=== PATIENT | male | born 1955 | race Caucasian/White ===

== ENCOUNTER → 2020-02-14 | Outpatient (CLI) | payer MEDICARE, OTHER ==
[2020-02-14 19:46] LABS: Bilirubin, Urine Neg (Neg); Blood, Urine Neg (Neg); Glucose Qualitative, Urine Neg (Neg); Ketones, Urine Neg (Neg); Leukocyte Esterase, Urine Neg (Neg); Nitrite, Urine Neg (Neg); Protein, Urine 3+ (Neg); Urobilinogen, Urine NORM (Normal); pH, Urine 6.5 (5.0-8.0)
[2020-02-14 19:58] LABS: Appearance, Urine Clear (Clear); Color, Urine Yellow (P-Yellow)
[2020-02-14 19:59] LABS: Bacteria Rare /hpf; Red Blood Cells, Urine Not Seen /hpf (0-2); Squamous Epithelial Cells Few /hpf (Few); White Blood Cells, Urine 0-2 /hpf (0-5)
== END | disposition home or self-care (01) ==
LOC: LAB 19:05 → LAB SHORT 19:05
PROVIDERS: Physician Assistant
DX: N39.0 Urinary tract infection, site not specified (principal)
CPT/HCPCS: 81001

== ENCOUNTER → 2020-03-19 | Outpatient (CLI) | payer MEDICARE, OTHER ==
[2020-03-19 15:58] LABS: BASOPHILS ABSOLUTE AUTO 0.05 K/mm3 (0.00-0.23); BASOPHILS PERCENT AUTO 1 % (0-2); EOSINOPHILS ABSOLUTE AUTO 0.33 K/mm3 (0.00-0.68); EOSINOPHILS PERCENT AUTO 6 % (0-6); Hematocrit 41.1 % (37.0-53.0); Hemoglobin 13.2 g/dL (13.5-17.5); IMMATURE GRAN ABSOLUTE AUTO 0.06 K/mm3 (0.00-0.10); IMMATURE GRAN PERCENT AUTO 1 % (0-1); LYMPHOCYTES ABSOLUTE AUTO 1.89 K/mm3 (0.84-5.20); LYMPHOCYTES PERCENT AUTO 36 % (21-46); MONOCYTES ABSOLUTE AUTO 0.44 K/mm3 (0.16-1.47); MONOCYTES PERCENT AUTO 8 % (4-13); Mean Corpuscular HGB 29.2 pg (26.0-34.0); Mean Corpuscular HGB Conc 32.1 g/dL (31.5-36.5); Mean Corpuscular Volume 91 fL (80-100); Mean Platelet Volume 12.7 fL (9.1-12.4); NEUTROPHILS ABSOLUTE AUTO 2.51 K/mm3 (1.96-9.15); NEUTROPHILS PERCENT AUTO 48 % (41-73); Platelet Count 134 K/mm3 (150-400); RDW Standard Deviation 53.7 fL (35.1-46.3); Red Blood Cell Count 4.52 M/mm3 (4.30-5.90); White Blood Cell Count 5.28 K/mm3 (4.00-11.30)
[2020-03-19 16:21] LABS: Valproic Acid 67.9 ug/mL (50.0-100.0)
[2020-03-20 07:08] LABS: HIV SCREEN 4TH GENERATION WRFX Non Reactive (Non Reactive)
== END | disposition home or self-care (01) ==
LOC: LAB 13:16 → LAB SHORT 13:16
PROVIDERS: Psychiatry & Neurology Psychiatry
DX: Z51.81 Encounter for therapeutic drug level monitoring (principal); I10 Essential (primary) hypertension; Z79.899 Other long term (current) drug therapy
CPT/HCPCS: 80164; 84443; 85025; 86592; 87389

== ENCOUNTER → 2020-03-30 | Outpatient (CLI) | payer MEDICARE, OTHER ==
[2020-04-01 13:14] LABS: Source, Urine Clean Catch
[2020-04-01 14:56] LABS: Bilirubin, Urine Neg (Neg); Blood, Urine Neg (Neg); Glucose Qualitative, Urine Neg (Neg); Ketones, Urine 2+ (Neg); Leukocyte Esterase, Urine Neg (Neg); Nitrite, Urine Neg (Neg); Protein, Urine 3+ (Neg); Specific Gravity, Urine 1.025 (1.003-1.022); Urobilinogen, Urine 1+ (Normal)
[2020-04-01 15:10] LABS: Appearance, Urine Clear (Clear); Color, Urine Amber (P-Yellow)
[2020-04-01 15:13] LABS: Bacteria Not Seen /hpf; Mucus Light (0-Heavy); Red Blood Cells, Urine Not Seen /hpf (0-2); Squamous Epithelial Cells Rare /hpf (Few); White Blood Cells, Urine Not Seen /hpf (0-5)
== END ==
LOC: LAB 20:00 → LAB SHORT 20:00
PROVIDERS: Physician Assistant
DX: N39.0 Urinary tract infection, site not specified (principal)
CPT/HCPCS: 81001

== ENCOUNTER → 2020-04-03 | Outpatient (CLI) | payer MEDICARE, OTHER ==
[2020-04-03 20:19] LABS: Alanine Aminotransfer (ALT/SGP 27 U/L (12-78); Albumin, Blood 2.7 g/dL (3.4-5.0); Albumin/Globulin Ratio 0.6 (0.8-1.8); Alk Phos 84 U/L (50-136); Anion Gap 4 mmol/L (6-16); Aspartate Aminotrans (AST/SGOT 44 U/L (12-37); Bilirubin, Direct 0.1 mg/dL (0.0-0.3); Bilirubin, Total 0.4 mg/dL (0.1-1.0); Blood Urea Nitrogen 32 mg/dL (8-24); Bun/Creatinine Ratio 35.8 (12.0-20.0); CO2, Blood 26 mmol/L (21-32); Calcium, Blood 8.8 mg/dL (8.5-10.1); Chloride, Blood 110 mmol/L (98-108); Creatinine, Blood 0.89 mg/dL (0.60-1.20); Globulin, Blood 4.8 g/dL (2.2-4.0); Glomerular Filtration Rate >60 (60-); Glucose, Blood 88 mg/dL (70-99); Potassium, Blood 4.3 mmol/L (3.5-5.5); Sodium, Blood 140 mmol/L (136-145); Total Protein, Blood 7.5 g/dL (6.4-8.2)
== END | disposition home or self-care (01) ==
LOC: LAB SHORT 12:29 → LAB 12:29
PROVIDERS: Physician Assistant
DX: R82.2 Biliuria (principal); R80.9 Proteinuria, unspecified; R82.4 Acetonuria; Z79.899 Other long term (current) drug therapy
CPT/HCPCS: 80053; 82248; 83735

== ENCOUNTER → 2020-09-02 | Outpatient (CLI) | payer MEDICARE, OTHER ==
[~2020-09-02] MED LIST: ACET325; AMLO5 PO; ASPI81CH PO; Cyproheptadine H4 MG PO; DICLOFENAC SOD100 GM; DIVA125 PO; FURO20 PO; LAVAP4L; LOPE2C PO; METR500; Naltrexone HCl50 MG PO; OLAN2.5 PO; OMEP20ER PO; ONDA4ODT MM; POTA10T PO; Prinivil10 MG PO; Prozac40 MG PO; TRAZ50 PO
[2020-09-02 19:25] LABS: Source, Urine Clean Catch
[2020-09-02 20:09] LABS: Appearance, Urine Clear (Clear); Blood, Urine 1+ (Neg); Color, Urine Amber (P-Yellow); Glucose Qualitative, Urine Neg (Neg); Ketones, Urine 2+ (Neg); Leukocyte Esterase, Urine 1+ (Neg); Nitrite, Urine Pos (Neg); Protein, Urine 3+ (Neg); Specific Gravity, Urine 1.025 (1.003-1.022); Urobilinogen, Urine 4+ (Normal)
[2020-09-02 20:27] LABS: Bilirubin, Urine 2+ (Neg)
[2020-09-02 20:28] LABS: Bacteria Rare /hpf; Hyaline Casts 0-2 /lpf (0-2); Mucus Light (0-Heavy); Red Blood Cells, Urine 0-2 /hpf (0-2); Squamous Epithelial Cells Rare /hpf (Few); White Blood Cells, Urine 0-2 /hpf (0-5)
[2020-09-02 20:53] LABS: Protein, Urine Random 183.9 mg/dL (0.0-11.9)
[2020-09-02 20:54] LABS: Protein, Urine Random 185.4 mg/dL (0.0-11.9)
== END | disposition home or self-care (01) ==
LOC: LAB SHORT 19:22 → LAB 19:22
PROVIDERS: Internal Medicine
DX: E87.0 Hyperosmolality and hypernatremia (principal); R80.9 Proteinuria, unspecified
CPT/HCPCS: 81001; 82570; 83935; 84156; 84300

== ENCOUNTER → 2020-09-06 | Outpatient (CLI) | payer MEDICARE, OTHER ==
[2020-09-06 14:59] LABS: Hematocrit 35.7 % (37.0-53.0); Hemoglobin 11.5 g/dL (13.5-17.5)
[2020-09-06 16:00] LABS: Albumin, Blood 2.2 g/dL (3.4-5.0); Anion Gap 8 mmol/L (6-16); Blood Urea Nitrogen 18 mg/dL (8-24); Bun/Creatinine Ratio 28.8 (12.0-20.0); CO2, Blood 26 mmol/L (21-32); Calcium, Blood 8.8 mg/dL (8.5-10.1); Chloride, Blood 110 mmol/L (98-108); Creatinine, Blood 0.63 mg/dL (0.60-1.20); Glomerular Filtration Rate >60 (60-); Glucose, Blood 111 mg/dL (70-99); Phosphorus, Blood 2.4 mg/dL (2.5-4.9); Potassium, Blood 3.7 mmol/L (3.5-5.5); Sodium, Blood 144 mmol/L (136-145)
== END | disposition home or self-care (01) ==
LOC: LAB SHORT 13:32 → LAB 13:32
PROVIDERS: Internal Medicine
DX: E87.0 Hyperosmolality and hypernatremia (principal)
CPT/HCPCS: 80069; 85014; 85018

== ENCOUNTER → 2021-01-29 | Outpatient (CLI) | payer MEDICARE, OTHER ==
[2021-01-29 12:50] LABS: Valproic Acid 72.9 ug/mL (50.0-100.0)
== END | disposition home or self-care (01) ==
LOC: LAB 08:55 → LAB SHORT 08:55
PROVIDERS: Psychiatry & Neurology Psychiatry
DX: Z51.81 Encounter for therapeutic drug level monitoring (principal); Z79.899 Other long term (current) drug therapy
CPT/HCPCS: 80164

== ENCOUNTER → 2021-09-24 | Outpatient (CLI) | payer MEDICARE, OTHER ==
[2021-09-24 12:13] LABS: BASOPHILS ABSOLUTE AUTO 0.06 K/mm3 (0.00-0.23); BASOPHILS PERCENT AUTO 1 % (0-2); EOSINOPHILS ABSOLUTE AUTO 0.23 K/mm3 (0.00-0.68); EOSINOPHILS PERCENT AUTO 2 % (0-6); Hematocrit 41.7 % (37.0-53.0); Hemoglobin 13.8 g/dL (13.5-17.5); IMMATURE GRAN ABSOLUTE AUTO 0.05 K/mm3 (0.00-0.10); IMMATURE GRAN PERCENT AUTO 0 % (0-1); LYMPHOCYTES ABSOLUTE AUTO 1.84 K/mm3 (0.84-5.20); LYMPHOCYTES PERCENT AUTO 16 % (21-46); MONOCYTES ABSOLUTE AUTO 0.76 K/mm3 (0.16-1.47); MONOCYTES PERCENT AUTO 7 % (4-13); Mean Corpuscular HGB 30.6 pg (26.0-34.0); Mean Corpuscular HGB Conc 33.1 g/dL (31.5-36.5); Mean Corpuscular Volume 93 fL (80-100); Mean Platelet Volume 11.4 fL (9.1-12.4); NEUTROPHILS ABSOLUTE AUTO 8.37 K/mm3 (1.96-9.15); NEUTROPHILS PERCENT AUTO 74 % (41-73); Platelet Count 208 K/mm3 (150-400); RDW Coefficient Variation 13.3 % (11.7-14.2); RDW Standard Deviation 45.2 fL (35.1-46.3); Red Blood Cell Count 4.51 M/mm3 (4.30-5.90); White Blood Cell Count 11.31 K/mm3 (4.00-11.30)
[2021-09-24 12:36] LABS: Alanine Aminotransfer (ALT/SGP 13 U/L (12-78); Albumin, Blood 2.4 g/dL (3.4-5.0); Albumin/Globulin Ratio 0.5 (0.8-1.8); Alk Phos 144 U/L (50-136); Anion Gap 6 mmol/L (6-16); Aspartate Aminotrans (AST/SGOT 14 U/L (12-37); Bilirubin, Total 0.4 mg/dL (0.1-1.0); Blood Urea Nitrogen 22 mg/dL (8-24); Bun/Creatinine Ratio 29.8 (12.0-20.0); CHOL/HDL RATIO 6.5; CO2, Blood 25 mmol/L (21-32); Chloride, Blood 108 mmol/L (98-108); Cholesterol 183 mg/dL (50-200); Creatinine, Blood 0.74 mg/dL (0.60-1.20); Globulin, Blood 4.5 g/dL (2.2-4.0); Glomerular Filtration Rate >60 (60-); Glucose, Blood 89 mg/dL (70-99); HDL Cholesterol 28 mg/dL (>39); LDL/HDL RATIO 4.6; Low Density Lipoprotein Chol 130 mg/dL (0-110); Potassium, Blood 4.1 mmol/L (3.5-5.5); Sodium, Blood 139 mmol/L (136-145); Total Protein, Blood 6.9 g/dL (6.4-8.2); Triglycerides 125 mg/dL (30-160); Very Low Density Lipoprot Chol 25 mg/dL (6-32)
== END | disposition home or self-care (01) ==
LOC: LAB SHORT 10:48 → LAB 10:48
PROVIDERS: Physician Assistant
DX: I69.354 Hemiplegia and hemiparesis following cerebral infarction affecting left non-dominant side (principal); I10 Essential (primary) hypertension
CPT/HCPCS: 80053; 80061; 85025

== ENCOUNTER 2022-01-09 02:09 | Day surgery (SDC) | payer MEDICARE, OTHER | END 2022-01-09 12:00 | disposition home or self-care (01) | LOC: WOUND 02:09 | DX: L89.892 Pressure ulcer of other site, stage 2 (principal); I73.9 Peripheral vascular disease, unspecified; I69.359 Hemiplegia and hemiparesis following cerebral infarction affecting unspecified side; I10 Essential (primary) hypertension; I25.2 Old myocardial infarction; M19.90 Unspecified osteoarthritis, unspecified site; Z87.891 Personal history of nicotine dependence; Z86.718 Personal history of other venous thrombosis and embolism | CPT/HCPCS: G0463 ==

== ENCOUNTER → 2022-01-14 | Outpatient (CLI) | payer MEDICARE, OTHER | END | disposition home or self-care (01) | LOC: LAB 11:11 → LAB SHORT 11:11 | DX: L97.509 Non-pressure chronic ulcer of other part of unspecified foot with unspecified severity (principal) | CPT/HCPCS: 87070; 87075; 87205 ==

== ENCOUNTER 2022-01-21 00:20 | Day surgery (SDC) | payer MEDICARE, OTHER | END 2022-01-21 22:50 | disposition home or self-care (01) | LOC: WOUND 00:20 | DX: L89.892 Pressure ulcer of other site, stage 2 (principal); I73.9 Peripheral vascular disease, unspecified | CPT/HCPCS: G0463 ==

== ENCOUNTER 2022-02-04 03:31 | Day surgery (SDC) | payer MEDICARE, OTHER ==
[2022-02-04] MEDS ORDERED: GABA300 (18:20)
[2022-02-04] MEDS ORDERED: PARO10 (18:23)
[2022-02-05] MEDS ORDERED: ALEVAZOL56.7 G1 TOP (00:32)
[2022-02-05] MEDS ORDERED: NYSTOP15 GM TOP (00:35)
[2022-02-05] MEDS ORDERED: VITAMIN D325 MC3 PO (00:37)
[2022-02-05] MEDS ORDERED: LORA.5 PO (00:40)
== END 2022-02-04 23:03 | disposition home or self-care (01) ==
LOC: WOUND 03:31
DX: L89.892 Pressure ulcer of other site, stage 2 (principal); I73.9 Peripheral vascular disease, unspecified; I69.359 Hemiplegia and hemiparesis following cerebral infarction affecting unspecified side
CPT/HCPCS: A9270; G0463

== ENCOUNTER 2022-02-04 17:27 | Inpatient (IN) | payer MEDICARE, OTHER ==
[~2022-02-04] VITALS: Ht 182.9 cm; Wt 87.5 kg
[~2022-02-04 17:27] MED LIST changes: -ACET325; +ACET325 PO
[2022-02-04 18:04] LABS: Source, Urine Straight Cath
[2022-02-04 18:10] LABS: BASOPHILS ABSOLUTE AUTO 0.07 K/mm3 (0.00-0.23); BASOPHILS PERCENT AUTO 0 % (0-2); EOSINOPHILS PERCENT AUTO 1 % (0-6); Hematocrit 47.8 % (37.0-53.0); Hemoglobin 15.7 g/dL (13.5-17.5); IMMATURE GRAN ABSOLUTE AUTO 0.07 K/mm3 (0.00-0.10); IMMATURE GRAN PERCENT AUTO 0 % (0-1); LYMPHOCYTES ABSOLUTE AUTO 1.87 K/mm3 (0.84-5.20); LYMPHOCYTES PERCENT AUTO 11 % (21-46); MONOCYTES ABSOLUTE AUTO 0.61 K/mm3 (0.16-1.47); MONOCYTES PERCENT AUTO 4 % (4-13); Mean Corpuscular HGB 29.2 pg (26.0-34.0); Mean Corpuscular HGB Conc 32.8 g/dL (31.5-36.5); Mean Corpuscular Volume 89 fL (80-100); Mean Platelet Volume 11.1 fL (9.1-12.4); NEUTROPHILS ABSOLUTE AUTO 14.44 K/mm3 (1.96-9.15); NEUTROPHILS PERCENT AUTO 84 % (41-73); Platelet Count 296 K/mm3 (150-400); RDW Coefficient Variation 14.1 % (11.7-14.2); RDW Standard Deviation 45.5 fL (35.1-46.3); Red Blood Cell Count 5.37 M/mm3 (4.30-5.90); White Blood Cell Count 17.26 K/mm3 (4.00-11.30)
[2022-02-04 18:18] LABS: Bilirubin, Urine Neg (Neg); Blood, Urine 2+ (Neg); Glucose Qualitative, Urine Neg (Neg); Ketones, Urine Neg (Neg); Leukocyte Esterase, Urine 1+ (Neg); Nitrite, Urine Neg (Neg); Protein, Urine 4+ (Neg); Specific Gravity, Urine 1.025 (1.003-1.022); Urobilinogen, Urine NORM (Normal)
[2022-02-04] MEDS ORDERED: GABA300 PO (18:20)
[2022-02-04] MEDS ORDERED: PARO10 PO (18:23)
[2022-02-04 18:45] LABS: Influenza A, PCR NEGATIVE (NEGATIVE); Influenza B, PCR NEGATIVE (NEGATIVE); Resp Syncytial Virus, PCR NEGATIVE (NEGATIVE); SARS-Cov-2 (COVID-19) PCR, MMC NEGATIVE (NEGATIVE)
[2022-02-04 18:46] LABS: Appearance, Urine Clear (Clear); Color, Urine Pale Yellow (P-Yellow)
[2022-02-04 18:48] LABS: Bacteria Few /hpf; Mucus Light (0-Heavy); Squamous Epithelial Cells Rare /hpf (Few)
[2022-02-04 19:42] LABS: Alanine Aminotransfer (ALT/SGP 17 U/L (12-78); Albumin, Blood 2.9 g/dL (3.4-5.0); Albumin/Globulin Ratio 0.6 (0.8-1.8); Alk Phos 158 U/L (50-136); Anion Gap 7 mmol/L (6-16); Aspartate Aminotrans (AST/SGOT 47 U/L (12-37); Bilirubin, Total 0.5 mg/dL (0.1-1.0); Blood Urea Nitrogen 25 mg/dL (8-24); Bun/Creatinine Ratio 34.3 (12.0-20.0); CO2, Blood 25 mmol/L (21-32); Calcium, Blood 8.8 mg/dL (8.5-10.1); Chloride, Blood 110 mmol/L (98-108); Creatinine, Blood 0.73 mg/dL (0.60-1.20); Globulin, Blood 4.8 g/dL (2.2-4.0); Glomerular Filtration Rate >60 (60-); Glucose, Blood 112 mg/dL (70-99); Potassium, Blood 5.3 mmol/L (3.5-5.5); Sodium, Blood 142 mmol/L (136-145); Total Protein, Blood 7.7 g/dL (6.4-8.2)
--- NOTE | 2022-02-04 23:55 | NUR ---
SHIFT SUMMARY: PATIENT IS RECIEVED FROM ER VIA STRETCHER. INC. OF URINE. SKIN IS INTACT, VSS. PATIENT IS UNABLE TO ANSWER QUESTION ABOUT MEDICATIONS. LIVES AT [facility] AND MEDICATIONS ARE GIVEN BY STAFF. NO REPORTS OF PAIN. PATIENT IS ORIENTED TO ROOM AND CALL SWARTZ. PATIENT IS A&O X3, KNOWS MONTH DOES NOT KNOW DATE. LEFT UPPER AND LOWER EXT. ARE CONTRACTED. PATIENT IS ABLE TO PUSH CALL SWARTZ AND IS ORIENTED TO ROOM AND CALL SWARTZ.
[2022-02-05] MEDS ORDERED: ALEVAZOL56.7 G1 TOP (00:32)
[2022-02-05] MEDS ORDERED: NYSTOP15 GM TOP (00:35)
[2022-02-05] MEDS ORDERED: VITAMIN D325 MC3 PO (00:37)
[2022-02-05] MEDS ORDERED: LORA.5 PO (00:40)
[2022-02-05 05:03] LABS: BASOPHILS ABSOLUTE AUTO 0.08 K/mm3 (0.00-0.23); BASOPHILS PERCENT AUTO 1 % (0-2); EOSINOPHILS ABSOLUTE AUTO 0.11 K/mm3 (0.00-0.68); EOSINOPHILS PERCENT AUTO 1 % (0-6); Hematocrit 40.9 % (37.0-53.0); Hemoglobin 13.3 g/dL (13.5-17.5); IMMATURE GRAN ABSOLUTE AUTO 0.11 K/mm3 (0.00-0.10); IMMATURE GRAN PERCENT AUTO 1 % (0-1); LYMPHOCYTES ABSOLUTE AUTO 1.82 K/mm3 (0.84-5.20); LYMPHOCYTES PERCENT AUTO 11 % (21-46); MONOCYTES ABSOLUTE AUTO 0.76 K/mm3 (0.16-1.47); MONOCYTES PERCENT AUTO 5 % (4-13); Mean Corpuscular HGB 29.8 pg (26.0-34.0); Mean Corpuscular HGB Conc 32.5 g/dL (31.5-36.5); Mean Corpuscular Volume 92 fL (80-100); Mean Platelet Volume 10.4 fL (9.1-12.4); NEUTROPHILS ABSOLUTE AUTO 14.07 K/mm3 (1.96-9.15); NEUTROPHILS PERCENT AUTO 83 % (41-73); Platelet Count 190 K/mm3 (150-400); RDW Coefficient Variation 14.3 % (11.7-14.2); RDW Standard Deviation 48.4 fL (35.1-46.3); Red Blood Cell Count 4.47 M/mm3 (4.30-5.90); White Blood Cell Count 16.95 K/mm3 (4.00-11.30)
[2022-02-05 05:32] LABS: Alanine Aminotransfer (ALT/SGP 13 U/L (12-78); Albumin, Blood 2.3 g/dL (3.4-5.0); Albumin/Globulin Ratio 0.6 (0.8-1.8); Alk Phos 117 U/L (50-136); Anion Gap 4 mmol/L (6-16); Aspartate Aminotrans (AST/SGOT 22 U/L (12-37); Bilirubin, Total 0.5 mg/dL (0.1-1.0); Blood Urea Nitrogen 27 mg/dL (8-24); Bun/Creatinine Ratio 31.1 (12.0-20.0); CO2, Blood 24 mmol/L (21-32); Calcium, Blood 7.7 mg/dL (8.5-10.1); Chloride, Blood 115 mmol/L (98-108); Creatinine, Blood 0.87 mg/dL (0.60-1.20); Globulin, Blood 3.8 g/dL (2.2-4.0); Glomerular Filtration Rate >60 (60-); Glucose, Blood 99 mg/dL (70-99); Sodium, Blood 143 mmol/L (136-145); Total Protein, Blood 6.1 g/dL (6.4-8.2)
--- NOTE | 2022-02-05 06:36 | NUR ---
SHIFT SUMMARY: PATIENT IS NPO FOR SWALLOW EVAL, POSSIBLE ASPIRATION. PATIENT TAKES PILLS CRUSHED IN APPLE SAUCE AT HOME FACILITY. TRAZADONE WAS GIVEN CRUSHED IN APPLE SAUCE AND SIP OF WATER WITHOUT DIFFICULTY. AM PRILOSEC IS NOT GIVEN, CAPSULE CAN'T BE OPENED. PATIENT WAS INC. OF A LARGE AMT. URINE ON ADMISSION, NO VOID SINCE.
--- NOTE | 2022-02-05 18:00 | NUR ---
SHIFT SUMMARY: NO ACUTE EVENTS. SWALLOW STUDY DONE, [facility] SOFT DIET. CONTRACTURES IN L ARM AND BLE, TURNING OFTEN. INCONTINENT OF B&B, ATTENDS IN PLACE. TOLERATING PO INTAKE. DENIED PAIN. TELEPHONE UPDATES GIVEN TO BRITTANY AT [facility] AND PT'S LEGAL GUARDIAN.
--- NOTE | 2022-02-06 05:08 | NUR ---
SHIFT SUMMARY: PATIENT HAS NO REPORTS OF PAIN, VSS, TRAZADONE WAS GIVEN AT HS WITH GOOD EFFECT. NO RESPIRATORY DISTRESS OBSERVED. PATIENT HAS AN OCCASIONAL MOIST COUGH. PATIENT IS INC. OF URINE, CONDUM CATH IS PLACED FOR URINARY DIVERSION.
[2022-02-06 06:08] LABS: BASOPHILS ABSOLUTE AUTO 0.05 K/mm3 (0.00-0.23); BASOPHILS PERCENT AUTO 1 % (0-2); EOSINOPHILS ABSOLUTE AUTO 0.32 K/mm3 (0.00-0.68); EOSINOPHILS PERCENT AUTO 3 % (0-6); Hematocrit 41.7 % (37.0-53.0); Hemoglobin 13.6 g/dL (13.5-17.5); IMMATURE GRAN ABSOLUTE AUTO 0.03 K/mm3 (0.00-0.10); IMMATURE GRAN PERCENT AUTO 0 % (0-1); LYMPHOCYTES ABSOLUTE AUTO 1.44 K/mm3 (0.84-5.20); LYMPHOCYTES PERCENT AUTO 15 % (21-46); MONOCYTES ABSOLUTE AUTO 0.66 K/mm3 (0.16-1.47); MONOCYTES PERCENT AUTO 7 % (4-13); Mean Corpuscular HGB 29.1 pg (26.0-34.0); Mean Corpuscular HGB Conc 32.6 g/dL (31.5-36.5); Mean Corpuscular Volume 89 fL (80-100); Mean Platelet Volume 10.1 fL (9.1-12.4); NEUTROPHILS PERCENT AUTO 74 % (41-73); Platelet Count 216 K/mm3 (150-400); RDW Coefficient Variation 14.3 % (11.7-14.2); RDW Standard Deviation 46.8 fL (35.1-46.3); Red Blood Cell Count 4.67 M/mm3 (4.30-5.90)
[2022-02-06 06:39] LABS: Anion Gap 6 mmol/L (6-16); Blood Urea Nitrogen 23 mg/dL (8-24); Bun/Creatinine Ratio 28.6 (12.0-20.0); CO2, Blood 26 mmol/L (21-32); Calcium, Blood 8.9 mg/dL (8.5-10.1); Chloride, Blood 111 mmol/L (98-108); Glomerular Filtration Rate >60 (60-); Glucose, Blood 97 mg/dL (70-99); Potassium, Blood 4.1 mmol/L (3.5-5.5); Sodium, Blood 143 mmol/L (136-145)
--- NOTE | 2022-02-06 17:25 | NUR ---
SHIFT SUMMARY PT ADMITTED FROM [facility] WITH SEVERE SEPSIS R/T PNM AND UTI. PT IS BED BOUND/WHEELCHAIR BOUND. LIFT TX TO CHAIR, PER REPORT. PT WITH HX OF CVA AND L SIDE DEFICITS. L ARM AND L LEG CONTRACTURES. PT STIFF WITH TURNING AND CHANGING. DOES REQUEST TO BE REPOSITIONED FREQUENTLY. ABLE TO TAKE PILLS WHOLE IN APPLESAUCE. FEEDS HIMSELF, MECH SOFT DIET, IF SET UP. CONDOM CATH IN PLACE TO PROTECT SKIN. NORMALLY INCONTINENT OF BOWEL AND BLADDER. SM SCABS ON 3DR AND 4TH TOES; WOUND CLINIC STAFF UP TO PROVIDE WOUND CARE AND PLACED ORDERS ON CHART. PER WOUND CLINIC STAFF, PT DOES COME IN FOR OUTPT TX WITH IODINE. PT TO D/C BACK TO [facility] ON WEDNESDAY, PER REPORT. NO STAFF AVAILABLE TO RECEIVE PT'S ON WEEKENDS. PT HAS BEEN PLEASANT AND CO-OP, WELL POLITE AND GRATEFUL FOR CARE GIVEN. CALL LT IN REACH AND ABLE TO MAKE NEEDS KNOWN.
--- NOTE | 2022-02-07 04:01 | NUR ---
SHIFT SUMMARY PT PLEASANT AND COOPERATIVE. SLEPT OFF AND ON THROUGHOUT THE NIGHT. BASELINE LEFT SIDED DEFECITS AND LEFT ARE AND R LEG CONTRACTURED. CONDOM CATH IN PLACE. CONDOM CATH DID COME DETACHED ONCE THIS EVENING, REQUIRING A WHOLE BED CHANGE BUT OTHERWISE WORKED WELL THROUGHOUT THE NIGHT. VITAL SIGNS STABLE. PT AWAITING DISCHARGE BACK HOME TO [facility], PROBABLE WEDNESDAY.
--- NOTE | 2022-02-07 18:30 | NUR ---
SHIFT SUMMARY- PT IS A/O, PLESANT AND COOPERATIVE. HE IS EATING AND DRINKING WELL. HE HAS BEEN INC OF STOOL THIS SHIFT. HIS CONDOM CATH WAS REMOVED. HIS BED IS IN THE LOW POSITION AND CALL LIGHT IS WITHIN REACH.
--- NOTE | 2022-02-08 04:34 | NUR ---
SHIFT SUMMARY PT APPEARED TO SLEEP WELL THIS EVENING. HX OF CVA WITH LEFT SIDED WEAKNESS. L ARM AND R LEG CONTRACTURED. PT HAD ONE SMALL SMEAR BM THIS EVENING. INCONTINENT OF BOWEL AND BLADDER. PT HAD AN UNEVENTFUL NIGHT. NO ACUTE CHANGES. AWAITING RETURN TO [facility]. VITAL SIGNS STABLE.
--- NOTE | 2022-02-08 18:27 | NUR ---
SHIFT SUMMARY- PT IS ALERT, PLESANT AND COOPERATIVE. HE IS EATING AND DRINKING THIS SHIFT. NO BM THIS SHIFT. HE IS INC OF URINE AND HAS AN ATTENDS IN PLACE. PLANNING DISCHARGE HOME TOMORROW. HIS BED IS IN THE LOW POSITION AND CALL LIGHT IS WITIN REACH.
--- NOTE | 2022-02-09 04:53 | NUR ---
SHIFT SUMMARY PT'S MENTATION CONTINUES TO IMPROVE. REMEMBERED THIS RN FROM THE SHIFT PRIOR. CALLS APPROPRIATELY. CONTINUES TO HAVE DEFECITS FROM PREVIOUS STROKE. LEFT SIDED WEAKNESS AND CONTRACTURES TO R LEG AND LEFT ARM. NO BOWEL MOVEMENTS THIS EVENING. PLAN FOR RETURN TO [facility] TODAY. VITAL SIGNS STABLE.
[2022-02-09] MEDS ORDERED: VISBIOME 112.51 EACH PO (12:03)
[2022-02-09] MEDS ORDERED: Vitamin D1000 UNI1 PO (12:04)
--- NOTE | 2022-02-09 15:31 | NUR ---
SHIFT SUMMARY NO ACUTE CHANGES TO PRESENT THIS SHIFT. PT TO RETURN TO [facility] SHORTLY. PT HAS RETURNED TO BASELINE. PLEASANT AND CO-OP, ABLE TO MAKE NEEDS KNOWN. HX OF CVA WITH L SIDE DEFICITS. R LEG AND L ARM CONTRACTURES. ABLE TO FEED SELF WITH SET UP. INCONTINENT OF BOWEL AND BLADDER. MEDS TAKEN WHOLE IN APPLESAUCE. DENIED FURTHER NEEDS. [facility] CALLED FOR UPDATE AND REPORT. PT WAITING FOR TRANSPORT AT THIS TIME. CALL LT IN REACH.
== END 2022-02-09 16:47 | disposition home or self-care (01) | DRG 871 ==
LOC: ER 17:27 → MEDS 22:54 → ENPENDDIS 02-09 10:44 → MEDS 02-09 16:47
PROVIDERS: Emergency Medicine; Family Medicine; Internal Medicine; ADMIT Internal Medicine
DX: A41.9 Sepsis, unspecified organism (principal); E43 Unspecified severe protein-calorie malnutrition; J18.9 Pneumonia, unspecified organism; F03.91 Unspecified dementia, unspecified severity, with behavioral disturbance; I69.354 Hemiplegia and hemiparesis following cerebral infarction affecting left non-dominant side; R65.20 Severe sepsis without septic shock; Z28.21 Immunization not carried out because of patient refusal; Z20.822 Contact with and (suspected) exposure to COVID-19; J43.9 Emphysema, unspecified; I10 Essential (primary) hypertension; G40.909 Epilepsy, unspecified, not intractable, without status epilepticus; K21.9 Gastro-esophageal reflux disease without esophagitis; G47.00 Insomnia, unspecified; Z68.24 Body mass index [BMI] 24.0-24.9, adult; I69.391 Dysphagia following cerebral infarction; Z86.711 Personal history of pulmonary embolism; Z87.891 Personal history of nicotine dependence; I25.2 Old myocardial infarction; Z79.82 Long term (current) use of aspirin; Z79.899 Other long term (current) drug therapy
CPT/HCPCS: 0241U; 36415; 51701; 71045; 80048; 80053; 81001; 83605; 83690; 85025; 87040; 87077; 87086; 92610; 93005; 93010; 94640; 96365; 96366; 96368; 96375; 99285-25; A9270; G0463; J0456; J0696; J1650; J1885; J2405; J2543; J3370; J7030; J7050

== ENCOUNTER 2022-02-25 00:29 | Day surgery (SDC) | payer MEDICARE, OTHER ==
[~2022-02-25 00:29] MED LIST changes: +ALEVAZOL56.7 G1 TOP; +GABA300; +LORA.5 PO; +NYSTOP15 GM TOP; +PARO10; +VISBIOME 112.51 EACH PO; +VITAMIN D325 MC3 PO; +Vitamin D1000 UNI1 PO
== END 2022-02-25 23:03 | disposition home or self-care (01) ==
LOC: WOUND 00:29
DX: L89.892 Pressure ulcer of other site, stage 2 (principal); I73.9 Peripheral vascular disease, unspecified; I69.359 Hemiplegia and hemiparesis following cerebral infarction affecting unspecified side
CPT/HCPCS: G0463

== ENCOUNTER 2022-03-18 02:51 | Day surgery (SDC) | payer MEDICARE, OTHER | END 2022-03-18 23:22 | disposition home or self-care (01) | LOC: WOUND 02:51 | DX: L89.892 Pressure ulcer of other site, stage 2 (principal); I73.9 Peripheral vascular disease, unspecified; I69.359 Hemiplegia and hemiparesis following cerebral infarction affecting unspecified side | CPT/HCPCS: G0463 ==

== ENCOUNTER → 2022-03-31 | Outpatient (CLI) | payer MEDICARE, OTHER ==
[2022-03-31 13:17] LABS: BASOPHILS ABSOLUTE AUTO 0.04 K/mm3 (0.00-0.23); BASOPHILS PERCENT AUTO 1 % (0-2); EOSINOPHILS PERCENT AUTO 4 % (0-6); Hematocrit 48.4 % (37.0-53.0); Hemoglobin 15.5 g/dL (13.5-17.5); IMMATURE GRAN ABSOLUTE AUTO 0.04 K/mm3 (0.00-0.10); IMMATURE GRAN PERCENT AUTO 1 % (0-1); LYMPHOCYTES ABSOLUTE AUTO 1.84 K/mm3 (0.84-5.20); LYMPHOCYTES PERCENT AUTO 25 % (21-46); MONOCYTES ABSOLUTE AUTO 0.56 K/mm3 (0.16-1.47); MONOCYTES PERCENT AUTO 8 % (4-13); Mean Corpuscular HGB 28.9 pg (26.0-34.0); Mean Corpuscular Volume 90 fL (80-100); Mean Platelet Volume 10.4 fL (9.1-12.4); NEUTROPHILS ABSOLUTE AUTO 4.72 K/mm3 (1.96-9.15); NEUTROPHILS PERCENT AUTO 63 % (41-73); Platelet Count 217 K/mm3 (150-400); RDW Coefficient Variation 15.9 % (11.7-14.2); RDW Standard Deviation 52.6 fL (35.1-46.3); Red Blood Cell Count 5.37 M/mm3 (4.30-5.90)
[2022-03-31 13:36] LABS: Alanine Aminotransfer (ALT/SGP 17 U/L (12-78); Albumin, Blood 2.9 g/dL (3.4-5.0); Albumin/Globulin Ratio 0.6 (0.8-1.8); Alk Phos 94 U/L (50-136); Anion Gap 6 mmol/L (6-16); Aspartate Aminotrans (AST/SGOT 15 U/L (12-37); Bilirubin, Total 0.3 mg/dL (0.1-1.0); Blood Urea Nitrogen 27 mg/dL (8-24); Bun/Creatinine Ratio 34.7 (12.0-20.0); CHOL/HDL RATIO 9.3; CO2, Blood 27 mmol/L (21-32); Calcium, Blood 8.8 mg/dL (8.5-10.1); Chloride, Blood 107 mmol/L (98-108); Cholesterol 195 mg/dL (50-200); Creatinine, Blood 0.78 mg/dL (0.60-1.20); Globulin, Blood 4.6 g/dL (2.2-4.0); Glomerular Filtration Rate >60 (60-); Glucose, Blood 94 mg/dL (70-99); HDL Cholesterol 21 mg/dL (>39); LDL/HDL RATIO 6.6; Low Density Lipoprotein Chol 138 mg/dL (0-110); Potassium, Blood 5.1 mmol/L (3.5-5.5); Sodium, Blood 140 mmol/L (136-145); Total Protein, Blood 7.5 g/dL (6.4-8.2); Triglycerides 180 mg/dL (30-160); Very Low Density Lipoprot Chol 36 mg/dL (6-32)
== END | disposition home or self-care (01) ==
LOC: LAB SHORT 11:54 → LAB 11:54
PROVIDERS: Physician Assistant
DX: Z13.220 Encounter for screening for lipoid disorders (principal); I10 Essential (primary) hypertension
CPT/HCPCS: 36415; 80053; 80061; 85025

== ENCOUNTER 2022-07-12 07:54 | Emergency (ER) | payer MEDICARE, OTHER ==
[~2022-07-12] VITALS: Ht 185.4 cm; Wt 81.7 kg
[~2022-07-12 07:54] MED LIST changes: -GABA300; +GABA300 PO
[2022-07-12 08:55] LABS: BASOPHILS ABSOLUTE AUTO 0.03 K/mm3 (0.00-0.23); BASOPHILS PERCENT AUTO 0 % (0-2); EOSINOPHILS ABSOLUTE AUTO 0.04 K/mm3 (0.00-0.68); EOSINOPHILS PERCENT AUTO 0 % (0-6); Hematocrit 45.9 % (37.0-53.0); Hemoglobin 15.6 g/dL (13.5-17.5); IMMATURE GRAN ABSOLUTE AUTO 0.04 K/mm3 (0.00-0.10); IMMATURE GRAN PERCENT AUTO 0 % (0-1); LYMPHOCYTES ABSOLUTE AUTO 1.16 K/mm3 (0.84-5.20); LYMPHOCYTES PERCENT AUTO 10 % (21-46); MONOCYTES ABSOLUTE AUTO 0.96 K/mm3 (0.16-1.47); MONOCYTES PERCENT AUTO 8 % (4-13); Mean Corpuscular HGB 31.3 pg (26.0-34.0); Mean Corpuscular Volume 92 fL (80-100); Mean Platelet Volume 9.9 fL (9.1-12.4); NEUTROPHILS ABSOLUTE AUTO 9.49 K/mm3 (1.96-9.15); NEUTROPHILS PERCENT AUTO 81 % (41-73); Platelet Count 246 K/mm3 (150-400); RDW Coefficient Variation 14.4 % (11.7-14.2); RDW Standard Deviation 48.8 fL (35.1-46.3); Red Blood Cell Count 4.99 M/mm3 (4.30-5.90); White Blood Cell Count 11.72 K/mm3 (4.00-11.30)
[2022-07-12 09:20] LABS: Albumin, Blood 3.2 g/dL (3.4-5.0); Albumin/Globulin Ratio 0.7 (0.8-1.8); Bilirubin, Total 0.5 mg/dL (0.1-1.0); Bun/Creatinine Ratio 35.2 (12.0-20.0); Calcium, Blood 8.9 mg/dL (8.5-10.1); Creatinine, Blood 0.65 mg/dL (0.60-1.20); Globulin, Blood 4.5 g/dL (2.2-4.0); Potassium, Blood 3.9 mmol/L (3.5-5.5); Total Protein, Blood 7.7 g/dL (6.4-8.2)
[2022-07-13] MEDS ORDERED: LOSA25 PO (03:34)
[2022-07-13] MEDS ORDERED: Naltrexone HCl50 MG PO (03:36)
[2022-07-13] MEDS ORDERED: ELEMENTAL ZINC30 MG PO (03:38)
[2022-07-13] MEDS ORDERED: LOPE2C PO (03:40)
[2022-07-13] MEDS ORDERED: ANASPAZ0.125 MG PO (03:40)
[2022-07-13] MEDS ORDERED: BACLOFEN5 M1 PO (03:41)
[2022-07-13] MEDS ORDERED: DULCOLAX400 MG/5 M PO (03:41)
== END 2022-07-12 13:52 | disposition home or self-care (01) ==
LOC: ER 07:54
PROVIDERS: Student in an Organized Health Care Education/Training Program
DX: R07.9 Chest pain, unspecified (principal); J43.9 Emphysema, unspecified; I10 Essential (primary) hypertension; Z86.711 Personal history of pulmonary embolism; Z79.899 Other long term (current) drug therapy; Z79.82 Long term (current) use of aspirin; Z87.891 Personal history of nicotine dependence
CPT/HCPCS: 71045; 80053; 83690; 84484; 85025; 93005; 93010; A9270

== ENCOUNTER 2022-07-12 20:55 | Inpatient (IN) | payer MEDICARE, OTHER ==
[~2022-07-12] VITALS: Ht 185.4 cm; Wt 90.7 kg
[~2022-07-12 20:55] MED LIST changes: -PARO10; +PARO10 PO
[2022-07-12 21:49] LABS: BASOPHILS ABSOLUTE AUTO 0.03 K/mm3 (0.00-0.23); BASOPHILS PERCENT AUTO 0 % (0-2); EOSINOPHILS ABSOLUTE AUTO 0.02 K/mm3 (0.00-0.68); EOSINOPHILS PERCENT AUTO 0 % (0-6); Hematocrit 48.5 % (37.0-53.0); Hemoglobin 16.6 g/dL (13.5-17.5); IMMATURE GRAN ABSOLUTE AUTO 0.13 K/mm3 (0.00-0.10); IMMATURE GRAN PERCENT AUTO 1 % (0-1); LYMPHOCYTES ABSOLUTE AUTO 1.09 K/mm3 (0.84-5.20); LYMPHOCYTES PERCENT AUTO 6 % (21-46); MONOCYTES ABSOLUTE AUTO 2.22 K/mm3 (0.16-1.47); MONOCYTES PERCENT AUTO 12 % (4-13); Mean Corpuscular HGB 31.7 pg (26.0-34.0); Mean Corpuscular HGB Conc 34.2 g/dL (31.5-36.5); Mean Corpuscular Volume 93 fL (80-100); Mean Platelet Volume 10.7 fL (9.1-12.4); NEUTROPHILS ABSOLUTE AUTO 15.33 K/mm3 (1.96-9.15); NEUTROPHILS PERCENT AUTO 81 % (41-73); Platelet Count 304 K/mm3 (150-400); RDW Coefficient Variation 14.6 % (11.7-14.2); RDW Standard Deviation 50.1 fL (35.1-46.3); Red Blood Cell Count 5.24 M/mm3 (4.30-5.90); White Blood Cell Count 18.82 K/mm3 (4.00-11.30)
[2022-07-12 22:52] LABS: Albumin, Blood 2.9 g/dL (3.4-5.0); Albumin/Globulin Ratio 0.6 (0.8-1.8); Bilirubin, Total 0.6 mg/dL (0.1-1.0); Bun/Creatinine Ratio 30.4 (12.0-20.0); Calcium, Blood 8.6 mg/dL (8.5-10.1); Creatinine, Blood 0.92 mg/dL (0.60-1.20); Globulin, Blood 4.5 g/dL (2.2-4.0); Potassium, Blood 4.6 mmol/L (3.5-5.5); Total Protein, Blood 7.4 g/dL (6.4-8.2)
[2022-07-13 02:48] LABS: Influenza A, PCR NEGATIVE (NEGATIVE); Influenza B, PCR NEGATIVE (NEGATIVE); Resp Syncytial Virus, PCR NEGATIVE (NEGATIVE); SARS-Cov-2 (COVID-19) PCR, MMC NEGATIVE (NEGATIVE)
[2022-07-13] MEDS ORDERED: LOSA25 PO (03:34)
[2022-07-13] MEDS ORDERED: Naltrexone HCl50 MG PO (03:36)
[2022-07-13] MEDS ORDERED: ELEMENTAL ZINC30 MG PO (03:38)
[2022-07-13] MEDS ORDERED: ANASPAZ0.125 MG PO (03:40)
[2022-07-13] MEDS ORDERED: LOPE2C PO (03:40)
[2022-07-13] MEDS ORDERED: DULCOLAX400 MG/5 M PO (03:41)
[2022-07-13] MEDS ORDERED: BACLOFEN5 M1 PO (03:41)
--- NOTE | 2022-07-13 03:48 | NUR ---
PT ARRIVED TO ROOM 229 FROM ER. PT ALERT, SLOW TO RESPOND. PT ORIENTED TO SELF; STATES DOES NOT KNOW BDAY, FOLLOWS SOME DIRECTIONS, AND ANSWERS SOME QUESTIONS. PT BP ELEVATED, HR TACHY 1'TEENS, PT DENIES CP/PRESSURE. PT IS C/O ABD PAIN, DENIES N/V AT THIS TIME. PT IS W/C BOUND AT BASELINE, RLE CROSSED OVER LLE, PT IS UNABLE TO MOVE LLE OR LUE. PT ORIENTED TO ROOM/CALL LIGHT, SOFT TOUCH CALL LIGHT PROVIDED.
[2022-07-13 05:28] LABS: BASOPHILS ABSOLUTE AUTO 0.03 K/mm3 (0.00-0.23); BASOPHILS PERCENT AUTO 0 % (0-2); EOSINOPHILS PERCENT AUTO 0 % (0-6); Hematocrit 46.8 % (37.0-53.0); Hemoglobin 15.7 g/dL (13.5-17.5); IMMATURE GRAN ABSOLUTE AUTO 0.17 K/mm3 (0.00-0.10); IMMATURE GRAN PERCENT AUTO 1 % (0-1); LYMPHOCYTES ABSOLUTE AUTO 1.47 K/mm3 (0.84-5.20); LYMPHOCYTES PERCENT AUTO 7 % (21-46); MONOCYTES ABSOLUTE AUTO 2.71 K/mm3 (0.16-1.47); MONOCYTES PERCENT AUTO 14 % (4-13); Mean Corpuscular HGB 31.5 pg (26.0-34.0); Mean Corpuscular HGB Conc 33.5 g/dL (31.5-36.5); Mean Corpuscular Volume 94 fL (80-100); Mean Platelet Volume 10.6 fL (9.1-12.4); NEUTROPHILS ABSOLUTE AUTO 15.51 K/mm3 (1.96-9.15); NEUTROPHILS PERCENT AUTO 78 % (41-73); Platelet Count 256 K/mm3 (150-400); RDW Coefficient Variation 14.9 % (11.7-14.2); RDW Standard Deviation 51.7 fL (35.1-46.3); Red Blood Cell Count 4.98 M/mm3 (4.30-5.90); White Blood Cell Count 19.89 K/mm3 (4.00-11.30)
[2022-07-13 05:52] LABS: Albumin, Blood 2.4 g/dL (3.4-5.0); Albumin/Globulin Ratio 0.6 (0.8-1.8); Bilirubin, Total 0.9 mg/dL (0.1-1.0); Calcium, Blood 8.3 mg/dL (8.5-10.1); Creatinine, Blood 0.9 mg/dL (0.60-1.20); Globulin, Blood 4.2 g/dL (2.2-4.0); Potassium, Blood 4.2 mmol/L (3.5-5.5); Total Protein, Blood 6.6 g/dL (6.4-8.2)
--- NOTE | 2022-07-13 06:18 | NUR ---
PT NEW ADMIT THIS SHIFT FOR LARA. PT T-MAX 100.1, HR TRENDING 90-1'TEENS THIS AM. PT DENIED CP/PRESSURE SINCE ARRIVING TO FLOOR. PT MED FOR ABD PAIN X1 W/REP RELIEF, NO C/O N/V. PT NPO, IVF CONT AND ABX CONT PER ORDERS. PT USING SOFT TOUCH CALL LIGHT FOR ASSISTANCE.
--- NOTE | 2022-07-13 08:36 | NUR ---
DR GILMORE IN TO SEE PT.
[2022-07-13 11:55] LABS: Source, Urine Straight Cath
--- NOTE | 2022-07-13 12:13 | NUR ---
PT TO PRE OP SENT SCHEDULED ABX TO PRE OP.
[2022-07-13 12:43] LABS: Appearance, Urine Hazy (Clear); Bilirubin, Urine Neg (Neg); Blood, Urine 3+ (Neg); Color, Urine Amber (P-Yellow); Glucose Qualitative, Urine Neg (Neg); Ketones, Urine 1+ (Neg); Leukocyte Esterase, Urine 1+ (Neg); Nitrite, Urine Neg (Neg); Protein, Urine 4+ (Neg); Urobilinogen, Urine NORM (Normal)
[2022-07-13 13:03] LABS: Amorphous Heavy (0-Heavy); Bacteria Few /hpf; Squamous Epithelial Cells Not Seen /hpf (Few)
[2022-07-13 13:04] LABS: Waxy Cast 0-2 /lpf (0)
--- NOTE | 2022-07-13 13:19 | NUR ---
07/13/22 1319 Darnell Montanez PT PRESENTS WITH CONTRACTURES. POSITIONED TO PT COMFORT PRIOR TO GOING UNDER GENERAL ANESTHESIA. LEFT ARM OVER CHEST, SECURED WITH TAPE. RIGHT LEG OVER LEFT LEG WITH PILLOW IN BETWEEN KNEES AND HEELS PADDED WITH GEL PAD.
[2022-07-13 16:37] LABS: PCO2 Arterial 35.9 mmHg (35-45); PO2 Arterial 71.4 mmHg (80-100); pH Blood Arterial 7.42 (7.35-7.45)
--- NOTE | 2022-07-13 17:13 | NUR ---
PT BACK FROM SURGERY SOUNDED VERY WET, GURGLING. 02 SATS 80S ON RA, PLACED ON 3L NC, 02 SATS IMPROVED TO LOW 90S. ATTEMPTED TO SUCTION, GOT SMALL AMOUNT THICK WHITE SECRETIONS. CALLED DR COPELAND, ORDERS OBTAINED. RT CAME PER ORDERS AND PERFORMED DEEP SUCTION, GOT MODERATE AMOUNT THICK SECRETIONS. ABG PERFORMED. XR IN TO SEE PT NOW. BP WAS 172/100, ADMINISTERED 5MG IV LOPRESSOR PER ORDERS. BP NOW 148/75. EASY TOUCH CALL LIGHT IN REACH.
--- NOTE | 2022-07-13 18:39 | NUR ---
SUMMARY PT POD 0 LAP LARA. LAP INCISIOINS W/WOUND GLUE CDI. PT HAD DIFFICULTY CLEARING SECRETIONS UPON ARRIVING TO FLOOR FROM PACU. DR COPELAND NOTIFIED AND ORDERS OBTAINED. RT PERFORMED DEEP SUCTION AND EXTRACTED MODERATE AMOUNT CLEAR SECRETIONS. 02 SATS IMPROVED. MEDICATED PT PER ORDERS W/LOPRESSOR FOR HIGH BP WICH HAS IMPROVED. PT RESTING W/EYES CLOSED. BREATHING E/U AT THIS TIME
--- NOTE | 2022-07-13 19:30 | NUR ---
recvd report from previous shift lashell Mcnair. pt sleeping in bed, bed in lowest position, bed rails up x 2, soft touch call light within reach.
--- NOTE | 2022-07-14 04:11 | NUR ---
SHIFT SUMMARY: VSS, NO ACUTE CHANGES. PT APPEARS TO BE SLEEPING WHEN NURSE ROUNDING. NURSING STAFF REPOSITIONED AND ASSESSED ATTENDS Q2. PT TOLERATED PO INTAKE, NO N/V. ROM TO CONTRACTURES L HAND AND RIGHT LEG. PT VOIDED IN ATTENDS THIS SHIFT. ABDOMINAL LAP SITES C/D/I.
[2022-07-14 05:12] LABS: Albumin, Blood 1.9 g/dL (3.4-5.0); Anion Gap 5 mmol/L (6-16); Blood Urea Nitrogen 34 mg/dL (8-24); CO2, Blood 26 mmol/L (21-32); Calcium, Blood 8.4 mg/dL (8.5-10.1); Chloride, Blood 114 mmol/L (98-108); Creatinine, Blood 1.36 mg/dL (0.60-1.20); Glomerular Filtration Rate 57 (60-); Glucose, Blood 122 mg/dL (70-99); Phosphorus, Blood 4.2 mg/dL (2.5-4.9); Potassium, Blood 4.1 mmol/L (3.5-5.5); Sodium, Blood 145 mmol/L (136-145)
[2022-07-14] MEDS ORDERED: Norco 5-325 Ta1 EACH PO (11:24)
--- NOTE | 2022-07-14 12:05 | NUR ---
PT DISCHARGING. REPORT GIVEN TO CARLOS AT [facility].
--- NOTE | 2022-07-14 15:12 | NUR ---
DISHCARGED REPORT CALLED EARLIER TO [facility]. IV DC'D, CATHETER INTACT. TELE REMOVED AND RETURNED. PT LEFT UNIT VIA GURNEY TRANSPORT W/POSSESSIONS AND DC PAPERWORK.
== END 2022-07-14 15:08 | disposition home or self-care (01) | DRG 854 ==
LOC: ER 20:55 → SURS 07-13 01:12
PROVIDERS: Family Medicine; Internal Medicine; Student in an Organized Health Care Education/Training Program; Surgery; ADMIT Internal Medicine
PROC: BF532Z0 Other Imaging of Gallbladder and Bile Ducts using Fluorescing Agent, Intraoperative (ICD-10-PCS; 2022-07-13)
PROC: 3E03329 Introduction of Other Anti-infective into Peripheral Vein, Percutaneous Approach (ICD-10-PCS; 2022-07-13)
PROC: 0FT44ZZ Resection of Gallbladder, Percutaneous Endoscopic Approach (ICD-10-PCS; principal; 2022-07-13 12:00)
DX: A41.9 Sepsis, unspecified organism (principal); F03.91 Unspecified dementia, unspecified severity, with behavioral disturbance; K80.00 Calculus of gallbladder with acute cholecystitis without obstruction; G40.909 Epilepsy, unspecified, not intractable, without status epilepticus; I10 Essential (primary) hypertension; K21.9 Gastro-esophageal reflux disease without esophagitis; I25.2 Old myocardial infarction; I25.10 Atherosclerotic heart disease of native coronary artery without angina pectoris; J43.9 Emphysema, unspecified; Z86.711 Personal history of pulmonary embolism; G47.00 Insomnia, unspecified; I69.398 Other sequelae of cerebral infarction; Z98.890 Other specified postprocedural states; Z79.899 Other long term (current) drug therapy; Z79.82 Long term (current) use of aspirin
CPT/HCPCS: 0241U; 36415; 36600; 71045; 74177; 74300; 80053; 80069; 81001; 82803; 83605; 83690; 84484; 85025; 87040; 87086; 88304; 92610; 93005; 93010; 94760; 96365; 96375; 99285-25; A9270; C1729; J1100; J2370; J2405; J2543; J2704; J2795; J3010; J7030; J7120; Q9967

== ENCOUNTER 2023-01-29 13:26 | Inpatient (IN) | payer MEDICARE, OTHER ==
[~2023-01-29] VITALS: Ht 165.1 cm; Wt 75.0 kg
[~2023-01-29 13:26] MED LIST changes: +ANASPAZ0.125 MG PO; +BACLOFEN5 M1 PO; +DULCOLAX400 MG/5 M PO; +ELEMENTAL ZINC30 MG PO; +LOSA25 PO; +Norco 5-325 Ta1 EACH PO
[2023-01-29 15:10] LABS: BASOPHILS ABSOLUTE AUTO 0.02 K/mm3 (0.00-0.23); BASOPHILS PERCENT AUTO 0 % (0-2); EOSINOPHILS ABSOLUTE AUTO 0.03 K/mm3 (0.00-0.68); EOSINOPHILS PERCENT AUTO 1 % (0-6); Hematocrit 42.5 % (37.0-53.0); Hemoglobin 14.1 g/dL (13.5-17.5); IMMATURE GRAN ABSOLUTE AUTO 0.05 K/mm3 (0.00-0.10); IMMATURE GRAN PERCENT AUTO 1 % (0-1); LYMPHOCYTES ABSOLUTE AUTO 1.11 K/mm3 (0.84-5.20); LYMPHOCYTES PERCENT AUTO 19 % (21-46); MONOCYTES ABSOLUTE AUTO 1.45 K/mm3 (0.16-1.47); MONOCYTES PERCENT AUTO 24 % (4-13); Mean Corpuscular HGB 31.8 pg (26.0-34.0); Mean Corpuscular HGB Conc 33.2 g/dL (31.5-36.5); Mean Corpuscular Volume 96 fL (80-100); Mean Platelet Volume 10.5 fL (9.1-12.4); NEUTROPHILS ABSOLUTE AUTO 3.31 K/mm3 (1.96-9.15); NEUTROPHILS PERCENT AUTO 56 % (41-73); Platelet Count 169 K/mm3 (150-400); RDW Coefficient Variation 14.2 % (11.7-14.2); RDW Standard Deviation 50.2 fL (35.1-46.3); Red Blood Cell Count 4.44 M/mm3 (4.30-5.90); White Blood Cell Count 5.97 K/mm3 (4.00-11.30)
[2023-01-29] MEDS ORDERED: TRAZ50 PO ×2 (15:13→23:47)
[2023-01-29 15:30] LABS: Albumin, Blood 2.8 g/dL (3.4-5.0); Albumin/Globulin Ratio 0.6 (0.8-1.8); Bilirubin, Total 0.4 mg/dL (0.1-1.0); Bun/Creatinine Ratio 19.2 (12.0-20.0); Calcium, Blood 8.7 mg/dL (8.5-10.1); Creatinine, Blood 1.3 mg/dL (0.60-1.20); Globulin, Blood 4.5 g/dL (2.2-4.0); Potassium, Blood 4.1 mmol/L (3.5-5.5); Total Protein, Blood 7.3 g/dL (6.4-8.2)
[2023-01-29 20:12] LABS: Source, Urine Clean Catch
[2023-01-29 20:16] LABS: Appearance, Urine Hazy (Clear); Blood, Urine Neg (Neg); Color, Urine Amber (P-Yellow); Glucose Qualitative, Urine Neg (Neg); Ketones, Urine Neg (Neg); Leukocyte Esterase, Urine Neg (Neg); Nitrite, Urine Neg (Neg); Protein, Urine 3+ (Neg); Urobilinogen, Urine 1+ (Normal)
[2023-01-29 20:33] LABS: Bilirubin, Urine 1+ (Neg)
[2023-01-29 20:34] LABS: Bacteria Few /hpf; Mucus Light (0-Heavy); Red Blood Cells, Urine Not Seen /hpf (0-2); Squamous Epithelial Cells Rare /hpf (Few)
[2023-01-29 20:35] LABS: Amorphous Mod (0-Heavy); Hyaline Casts 0-2 /lpf (0-2)
--- NOTE | 2023-01-29 20:37 | NUR ---
TRANSFER NOTE THIS RN RECEIVED REPORT VIA PHONE FROM KARLIE BRAVO IN THE ED. PATIENT TRANSFERRED TO UNIT AT 1953. PATIENT SLID FROM RCAMPTI TO BED WITH SLIDE SHEET. PATIENT TITRATED DOWN TO 2L VIA NC WITH SPO2 96-97% AT THIS TIME. BP STABLE WITH SBP 110-120 AT THIS TIME. NSR ON MONITOR WITH HR 70-80'S. COARSE/DIM LS THROUGHOUT. MOIST PRODUCTIVE COUGH WITH CLEAR SPUTUM NOTED. FAILED BEDSIDE SWALLOW EVAL AT THIS TIME. THIS RN WILL REASSESS LATER THIS SHIFT. SUCTIONING DONE NEEDED. CONDOM CATH IN PLACE DRAINING DARK YELLOW URINE; URINE SENT TO LAB. SKIN INTACT. AFEBRILE AT THIS TIME. MITA GÓMEZ RN FROM [facility] IS THE NURSE FOR THE PATIENT AND CAN BE CALLED AT [phone]. PATIENT'S CALOS ABEL CAN BE CONTACTED AT NUMBER LISTED ON FILE WEDNESDAY-WEDNESDAY AT THAT NUMBER, IF OUTSIDE THOSE DAYS, THE VOICEMAIL LISTS OTHER NUMBER THAT SHE CAN BE REACHED AT. PER JAVED THE GAURDIAN HAS BEEN UPDATED AND THE PATIENT VERBALIZED TO JAVED TO CALL AND UPDATE DAUGHTER. PATIENT ALERT AND ORIENTED TO SELF BUT IS CONFUSED ABOUT SITUATION, DATE/TIME, AND PLACE. STATED THAT IT'S 2019 AND HE'S AT [facility]. ABLE TO ANSWER SIMPLE QUESTIONS AND FOLLOW COMMANDS. PILLOWS PLACED FOR CONTRACTURES AND WILL START REPOSTIIONING Q2HRS. MD DEMARCO TO BEDSIDE AND CHANGED PATIENT TO MEDICAL STATUS. JAVED FROM [facility] IN ROOM TO ASSIST WITH PATIENT'S HISTORY AND BASELINE. WILL BE NPO AT THIS TIME FOR ASPIRATION RISK. BED IN LOWEST POSITION AND CALL LIGHT WITHIN REACH.
[2023-01-29] MEDS ORDERED: GABAPENTIN250 MG/59 PO (23:33)
[2023-01-29] MEDS ORDERED: PARO2SU PO (23:44)
[2023-01-29] MEDS ORDERED: MIRALAX17 GM PO (23:50)
[2023-01-29] MEDS ORDERED: VISBIOME 112.51 EACH PO (23:51)
[2023-01-29] MEDS ORDERED: BISA10S PR (23:54)
[2023-01-29] MEDS ORDERED: DULCOLAX400 MG/5 M PO (23:57)
--- NOTE | 2023-01-30 00:45 | NUR ---
PATIENT UPDATE PATIENT WAS ON 2L VIA NC AFTER ARRIVAL TO UNIT AND DID WELL FOR ABOUT AN HOUR. AROUND 2300 PATIENT DESATTED TO THE LOW 80'S. PATIENT SUCTIONED D/T PRODUCTIVE/MOIST COUGH. CLEAR SPUTUM SUCTIONED. CALL PLACED TO RT ANNE-MARIE. PATIENT PLACED ON HIFLOW NC AT 9L. SPO2 INCREASED TO 94%. PATIENT'S HOB REMAINS ELEVATED. CURRENTLY STILL AT 9L VIA HIFLOW WITH SPO2 >92%. WILL TITRATE APPROPRIATE. PATIENT IS HAVING DIFFICULTY KEEPING NC IN NOSE AT THIS TIME BUT IS ABLE TO REORIENTED. THIS RN CHECKING PATIENT FREQUENTLY AND WATCHING O2 SATS ON MONITOR. PATIENT WAS CHANGED TO MEDICAL STATUS PRIOR TO DESAT EVENT. THIS RN WILL CONTINUE TO MONITOR FOR NEED TO CHANGE PATIENT BACK TO PCU STATUS. BED IN LOWEST POSITION AND CALL LIGHT WITHIN REACH.
--- NOTE | 2023-01-30 04:55 | NUR ---
SHIFT SUMMARY NO ACUTE EVENTS SINCE PREVIOUS NOTE. PATIENT IS NOW ON 2L OF O2 VIA NC WITH SPO2 >92%. THIS RN ATTEMPTED TO PUT PATIENT ON RA, HOWEVER, O2 SATS DROPPED TO 89% SO O2 WAS PLACED BACK. PATIENT DENIES SOB AND IS IN NO APPARENT DISTRESS. APPEARS PALE. NO DIAPHORESIS NOTED. AFEBRILE. BP STABLE WITH SBP 120-130 AT THIS TIME. NSR ON MONITOR WITH HR 70-80. DENIES CHEST PAIN/PRESSURE. THIS RN REASSESSED SWALLOW WITH WATER AND PATIENT DID WELL WITH WATER BY SPOON WITH NO COUGHING NOTED WAS PREVIOUSLY NOTED. PATIENT WITH NO TEETH, AND STATES HE DOES NOT WEAR DENTURES AT THE FACILITY AND ONLY EATS SOFT FOOD. IN FACILITY PACKET IT WAS NOTED THAT PATIENT ALSO TAKES PILLS CRUSHED IN APPLESAUCE. THIS RN UPDATED DIET TO PUREE AT THIS TIME. PATIENT CONTINUES TO BE ALERT AND ORIENTED TO SELF. EASILY AGGITATED. REFUSING SUCTIONING AND ORAL CARE OFTEN. OCCASIONALLY ALLOWS THIS RN TO SUCTION SECRETIONS AFTER COUGHING. REPOSITIONING Q2HRS. PILLOWS USED TO PREVENT PRESSURE BETWEEN EXTREMETIES/BODY/BED. FINGERS OF CONTRACTED LEFT HAND CLEANSED WITH PADDING PLACED BETWEEN THEM TO PREVENT PRESSURE WOUNDS FROM FORMING. CONDOM CATH IN PLACE, 400MLS OF DARK YELLOW URINE DURING THIS SHIFT. BED IN LOWEST POSITION AND CALL LIGHT WITHIN REACH. HOB ELEVATED. REFUSING SCD'S. THIS RN WILL CONTINUE TO MONITOR UNTIL SHIFT CHANGE AT 0700.
[2023-01-30 05:10] LABS: Albumin, Blood 2.6 g/dL (3.4-5.0); Albumin/Globulin Ratio 0.6 (0.8-1.8); Bilirubin, Total 0.4 mg/dL (0.1-1.0); Bun/Creatinine Ratio 34.4 (12.0-20.0); Calcium, Blood 7.8 mg/dL (8.5-10.1); Creatinine, Blood 0.84 mg/dL (0.60-1.20); Globulin, Blood 4.1 g/dL (2.2-4.0); Magnesium, Blood 1.9 mg/dL (1.6-2.4); Potassium, Blood 4.6 mmol/L (3.5-5.5); Total Protein, Blood 6.7 g/dL (6.4-8.2)
--- NOTE | 2023-01-30 05:50 | NUR ---
PATIENT UPDATE PATIENT'S CBC LAB DRAW THAT WAS DONE PREVIOUSLY NEEDED TO BE REDRAWN. WHEN MUCK HAULER TRIED TO DRAW PATIENT, PATIENT REFUSED AND WAS AGGITATED, YELLING AT MUCK HAULER. THIS RN ATTEMPTED TO TALK TO PATIENT, PATIENT YELLED AT THIS RN THAT "HE JUST WANTS US TO LEAVE HIM ALONE AND NOT TOUCH HIM". PATIENT WAS UNABLE TO LISTEN TO EDUCATION AND REASONING BEHIND GETTING LABS DONE. PATIENT ATTEMPTED TO RAISE HAND TO HIT THIS RN. PATIENT THEN BEGAN TO PULL AT NASAL CANNULA. THIS RN PUT NASAL CANNULA IN NOSE AND LEFT PATIENT'S ROOM SO THAT HE COULD CALM DOWN. LAB INSTRUCTED TO ATTEMPT DRAW AT A LATER TIME THIS AM. PATIENT IN BED WITH HOB ELEVATED, IN LOWEST POSITION AND CALL LIGHT WITHIN REACH. WILL REPORT TO ONCOMING RN.
--- NOTE | 2023-01-30 07:46 | NUR ---
Received report from NOC RN. Patient has been refusing am labs and states he does not want care and wants to go back to [facility]. He is on 2L via NC and sats 98%. He had condom cath in attends but was not attached and am leaving in attends for incontinence. He has 22ga IV in right hand and is flushed and SL'd. His left arm is contracted, and moves at shoulder joint. He is moving right arm freely with minimal control. His speech is clear and slow to respond. He is on isolation for Covid and air filter running in room.
--- NOTE | 2023-01-30 12:00 | NUR ---
Patient has been resting on RA for several hours with sats >90%. He has been drinking liquids but denies any apetite to want to eat puree diet. He has been cooperative and taking meds if asked first, but cuntinues to refuse lab draws.
--- NOTE | 2023-01-30 14:26 | NUR ---
Dr Mills by and will be discharging. Patient had large bm and cleaned him up and changed linen. Patient was agitated and then calmed down. Called [facility] and tried to get him back home. Patient has remained on RA since this am and sats >90%.
[2023-01-30] MEDS ORDERED: DECADRON6 M1 PO (14:47)
--- NOTE | 2023-01-30 15:48 | NUR ---
Patient is being discharged back to [facility]. He received first does of Dexamethazone. Talked with Lori and arrange what was needed to get him Home. VSS. He remains on RA and sats 96%. He is in attends for incontinence.
== END 2023-01-30 16:05 | disposition home or self-care (01) | DRG 177 ==
LOC: ER 13:26 → PCU 18:36
PROVIDERS: Emergency Medicine; ADMIT Student in an Organized Health Care Education/Training Program
PROC: 3E0333Z Introduction of Anti-inflammatory into Peripheral Vein, Percutaneous Approach (ICD-10-PCS; principal; 2023-01-29)
DX: U07.1 COVID-19 (principal); J96.01 Acute respiratory failure with hypoxia; F03.918 Unspecified dementia, unspecified severity, with other behavioral disturbance; I69.354 Hemiplegia and hemiparesis following cerebral infarction affecting left non-dominant side; J43.9 Emphysema, unspecified; I10 Essential (primary) hypertension; G40.909 Epilepsy, unspecified, not intractable, without status epilepticus; I69.391 Dysphagia following cerebral infarction; R13.10 Dysphagia, unspecified; B19.20 Unspecified viral hepatitis C without hepatic coma; K21.9 Gastro-esophageal reflux disease without esophagitis; I95.9 Hypotension, unspecified; E86.0 Dehydration; G47.00 Insomnia, unspecified; B95.1 Streptococcus, group B, as the cause of diseases classified elsewhere; B96.89 Other specified bacterial agents as the cause of diseases classified elsewhere; I25.2 Old myocardial infarction; Z79.899 Other long term (current) drug therapy; Z86.711 Personal history of pulmonary embolism; Z79.82 Long term (current) use of aspirin; Z79.01 Long term (current) use of anticoagulants; Z79.891 Long term (current) use of opiate analgesic; Z98.890 Other specified postprocedural states
CPT/HCPCS: 36415; 71045; 80053; 81001; 82947; 83605; 83735; 84145; 85025; 87086; 87147; 93005; 93010; 94762; 96360; 99285-25; A9270; J1100; J1644; J7030; J7120

== ENCOUNTER → 2023-04-14 | Outpatient (CLI) | payer MEDICARE, OTHER ==
[~2023-04-14] MED LIST changes: +BISA10S PR; +DECADRON6 M1 PO; +GABAPENTIN250 MG/59 PO; +MIRALAX17 GM PO; +PARO2SU PO
[2023-04-14 12:14] LABS: Albumin, Blood 2.6 g/dL (3.4-5.0); Anion Gap 8 mmol/L (6-16); Blood Urea Nitrogen 23 mg/dL (8-24); Bun/Creatinine Ratio 26.6 (12.0-20.0); CO2, Blood 26 mmol/L (21-32); Calcium, Blood 8.7 mg/dL (8.5-10.1); Chloride, Blood 110 mmol/L (98-108); Creatinine, Blood 0.87 mg/dL (0.60-1.20); Glomerular Filtration Rate 94 (60-); Glucose, Blood 85 mg/dL (70-99); Potassium, Blood 4.3 mmol/L (3.5-5.5); Sodium, Blood 144 mmol/L (136-145)
== END | disposition home or self-care (01) ==
LOC: LAB SHORT 07:50 → LAB 07:50
PROVIDERS: Internal Medicine Nephrology
DX: N18.2 Chronic kidney disease, stage 2 (mild) (principal); E55.9 Vitamin D deficiency, unspecified
CPT/HCPCS: 80069; 82306

== ENCOUNTER → 2023-07-06 | Outpatient (CLI) | payer MEDICARE, OTHER ==
[~2023-07-06] MED LIST changes: +CEFP200 PO; +FUROSEMIDE20 MG PO
[2023-07-08 14:53] LABS: Stool Occult Bld Immuno 1 Positive (NEGATIVE)
== END | disposition home or self-care (01) ==
LOC: LAB SHORT 08:32 → LAB 08:32
PROVIDERS: Physician Assistant
DX: Z12.11 Encounter for screening for malignant neoplasm of colon (principal)
CPT/HCPCS: G0328

== ENCOUNTER → 2023-07-09 | Outpatient (CLI) | payer MEDICARE, OTHER ==
[2023-07-09 14:57] LABS: BASOPHILS ABSOLUTE AUTO 0.04 K/mm3 (0.00-0.23); BASOPHILS PERCENT AUTO 0 % (0-2); EOSINOPHILS ABSOLUTE AUTO 0.17 K/mm3 (0.00-0.68); EOSINOPHILS PERCENT AUTO 2 % (0-6); Hemoglobin 11.8 g/dL (13.5-17.5); IMMATURE GRAN ABSOLUTE AUTO 0.04 K/mm3 (0.00-0.10); IMMATURE GRAN PERCENT AUTO 0 % (0-1); LYMPHOCYTES PERCENT AUTO 18 % (21-46); MONOCYTES ABSOLUTE AUTO 0.49 K/mm3 (0.16-1.47); MONOCYTES PERCENT AUTO 5 % (4-13); Mean Corpuscular HGB 31.1 pg (26.0-34.0); Mean Corpuscular HGB Conc 33.7 g/dL (31.5-36.5); Mean Corpuscular Volume 92 fL (80-100); Mean Platelet Volume 10.4 fL (9.1-12.4); NEUTROPHILS ABSOLUTE AUTO 7.59 K/mm3 (1.96-9.15); NEUTROPHILS PERCENT AUTO 75 % (41-73); Platelet Count 211 K/mm3 (150-400); RDW Coefficient Variation 16.8 % (11.7-14.2); RDW Standard Deviation 57.3 fL (35.1-46.3); Red Blood Cell Count 3.79 M/mm3 (4.30-5.90); White Blood Cell Count 10.13 K/mm3 (4.00-11.30)
[2023-07-09 15:22] LABS: Albumin, Blood 2.4 g/dL (3.4-5.0); Albumin/Globulin Ratio 0.6 (0.8-1.8); Alk Phos 68 U/L (50-136); Anion Gap 4 mmol/L (6-16); Aspartate Aminotrans (AST/SGOT 22 U/L (12-37); Bilirubin, Total 0.2 mg/dL (0.1-1.0); Blood Urea Nitrogen 17 mg/dL (8-24); Bun/Creatinine Ratio 30.2 (12.0-20.0); CHOL/HDL RATIO 5.2; CO2, Blood 27 mmol/L (21-32); Calcium, Blood 8.5 mg/dL (8.5-10.1); Chloride, Blood 110 mmol/L (98-108); Cholesterol 150 mg/dL (50-200); Creatinine, Blood 0.56 mg/dL (0.60-1.20); Glomerular Filtration Rate 107 (60-); Glucose, Blood 89 mg/dL (70-99); HDL Cholesterol 29 mg/dL (>39); LDL/HDL RATIO 3.1; Low Density Lipoprotein Chol 89 mg/dL (0-110); Potassium, Blood 3.7 mmol/L (3.5-5.5); Sodium, Blood 141 mmol/L (136-145); Total Protein, Blood 6.4 g/dL (6.4-8.2); Triglycerides 162 mg/dL (30-160); Valproic Acid 71.5 ug/mL (50.0-100.0); Very Low Density Lipoprot Chol 32 mg/dL (6-32)
[2023-07-09 15:24] LABS: Alanine Aminotransfer (ALT/SGP 14 U/L (12-78)
== END ==
LOC: LAB 11:45 → LAB SHORT 11:45
PROVIDERS: Physician Assistant
DX: N17.9 Acute kidney failure, unspecified (principal); G40.909 Epilepsy, unspecified, not intractable, without status epilepticus; Z79.899 Other long term (current) drug therapy; I69.391 Dysphagia following cerebral infarction
CPT/HCPCS: 80053; 80061; 80164; 85025

== ENCOUNTER 2023-08-01 07:16 | Inpatient (IN) | payer MEDICARE, OTHER ==
[~2023-08-01] VITALS: Ht 177.8 cm; Wt 63.8 kg
[2023-08-01 07:52] LABS: BASOPHILS ABSOLUTE AUTO 0.04 K/mm3 (0.00-0.23); BASOPHILS PERCENT AUTO 0 % (0-2); EOSINOPHILS ABSOLUTE AUTO 0.14 K/mm3 (0.00-0.68); EOSINOPHILS PERCENT AUTO 1 % (0-6); Hematocrit 37.9 % (37.0-53.0); Hemoglobin 12.5 g/dL (13.5-17.5); IMMATURE GRAN ABSOLUTE AUTO 0.07 K/mm3 (0.00-0.10); IMMATURE GRAN PERCENT AUTO 1 % (0-1); LYMPHOCYTES PERCENT AUTO 25 % (21-46); MONOCYTES ABSOLUTE AUTO 0.94 K/mm3 (0.16-1.47); MONOCYTES PERCENT AUTO 7 % (4-13); Mean Corpuscular HGB 31.6 pg (26.0-34.0); Mean Corpuscular Volume 96 fL (80-100); Mean Platelet Volume 11.3 fL (9.1-12.4); NEUTROPHILS ABSOLUTE AUTO 8.47 K/mm3 (1.96-9.15); NEUTROPHILS PERCENT AUTO 66 % (41-73); Platelet Count 145 K/mm3 (150-400); RDW Coefficient Variation 16.8 % (11.7-14.2); RDW Standard Deviation 59.5 fL (35.1-46.3); Red Blood Cell Count 3.96 M/mm3 (4.30-5.90); White Blood Cell Count 12.86 K/mm3 (4.00-11.30)
[2023-08-01 08:15] LABS: Albumin, Blood 2.5 g/dL (3.4-5.0); Albumin/Globulin Ratio 0.6 (0.8-1.8); Bilirubin, Total 0.4 mg/dL (0.1-1.0); Calcium, Blood 8.9 mg/dL (8.5-10.1); Creatinine, Blood 0.95 mg/dL (0.60-1.20); Globulin, Blood 4.2 g/dL (2.2-4.0); Potassium, Blood 3.9 mmol/L (3.5-5.5); Total Protein, Blood 6.7 g/dL (6.4-8.2)
[2023-08-01 08:16] LABS: Source, Urine Straight Cath
[2023-08-01 08:28] LABS: Appearance, Urine Clear (Clear); Blood, Urine 3+ (Neg); Color, Urine Red (P-Yellow); Glucose Qualitative, Urine Neg (Neg); Ketones, Urine 2+ (Neg); Leukocyte Esterase, Urine 3+ (Neg); Nitrite, Urine Neg (Neg); Protein, Urine 2+ (Neg); Specific Gravity, Urine 1.025 (1.003-1.022); Urobilinogen, Urine 2+ (Normal)
[2023-08-01 08:36] LABS: Bilirubin, Urine 2+ (Neg)
[2023-08-01 08:39] LABS: Amorphous Light (0-Heavy); Bacteria Few /hpf; Mucus Mod (0-Heavy); Squamous Epithelial Cells Not Seen /hpf (Few)
[2023-08-01 08:50] LABS: Influenza A, PCR NEGATIVE (NEGATIVE); Influenza B, PCR NEGATIVE (NEGATIVE); Resp Syncytial Virus, PCR NEGATIVE (NEGATIVE); SARS-Cov-2 (COVID-19) PCR, MMC NEGATIVE (NEGATIVE)
[2023-08-01 12:52] LABS: Valproic Acid 73.2 ug/mL (50.0-100.0)
[2023-08-01 13:17] VITALS: BP 116/67
[2023-08-01 15:50] VITALS: BP 130/76
--- NOTE | 2023-08-01 16:56 | NUR ---
ADMISSION NOTES: PATIENT ARRIVES TO ROOM AT AROUND 1300 FROM ER FOR DX OF AMS. PATIENT RESPONDS TO VERBAL AND PAINFUL STIMULI. ANSWER TO "YES OR NO" QUESTIONS. PATIENT IS CONTRACTURES TO ALL EXTREMITIES. PATIENT IS NONCONTRIBUTORY TO HIS MEDICAL HISTORY. PATIENT LIVES AT [facility]. THIS RN CALLED [facility] AND SPOKE TO [facility] ([facility]). PER DASHAWN, PATIENT BASELINE "ONLY ANSWER TO YES OR NO QUESTIONS, ONE WORDS AND SOMETIMES HE YELLS AND KICK OUT IF HE DID NOT GET HIS ATTENTION RIGHT AWAY AND CONFUSION." [facility] ALSO REPORTS "PATIENT DOES NOT USES O2, MECHANICAL SOFT DIET, FEEDER, BEDREST/WHEELCHAIR BOUND AND USES ROCHELLE LIFT FOR TRANSFER." MEDRIC AND SKIN ASSESSMENT c 2 RN BOX WORKER'S COMPLETED. PATIENT IS INCONTINENCE OF BLADDER c REDDISH/DARK COLORED TEA URINE COLOR, ETIENNE CARE AND ATTENDS CHANGED. NPO, AWAITING FOR SPEECH EVAL. LUNGS COARSE AND WHEEZY T/O TO AUSCULTATIONS. PATIENT WAS ON 8L OF OXYMIZER WHEN ARRIVED TO THE ROOM c SPO2 RANGES 97-100%. O2 WAS TITRATED TO 6L OF OXYMIZER c SPO2 OF 100%. AT AROUND 1600 PATIENT PLACED ON 3L NC c SPO2 OF 100%. AT AROUND 1710 PATIENT PLACED ON RA c SPO2 RANGES 93-94%. BP WNL AND STABLE. PIV TO R FOREARM INFUSING LR AT 100 MLS/HR. BED ALARM ON FOR SAFETY. CALL LIGHT IN REACH.
[2023-08-01 19:45] VITALS: BP 106/51
[2023-08-02 05:38] VITALS: BP 134/68
[2023-08-02 06:33] LABS: BASOPHILS ABSOLUTE AUTO 0.03 K/mm3 (0.00-0.23); BASOPHILS PERCENT AUTO 0 % (0-2); EOSINOPHILS ABSOLUTE AUTO 0.16 K/mm3 (0.00-0.68); EOSINOPHILS PERCENT AUTO 2 % (0-6); Hematocrit 33.7 % (37.0-53.0); IMMATURE GRAN ABSOLUTE AUTO 0.03 K/mm3 (0.00-0.10); IMMATURE GRAN PERCENT AUTO 0 % (0-1); LYMPHOCYTES ABSOLUTE AUTO 1.87 K/mm3 (0.84-5.20); LYMPHOCYTES PERCENT AUTO 23 % (21-46); MONOCYTES ABSOLUTE AUTO 0.62 K/mm3 (0.16-1.47); MONOCYTES PERCENT AUTO 8 % (4-13); Mean Corpuscular HGB 31.3 pg (26.0-34.0); Mean Corpuscular HGB Conc 32.6 g/dL (31.5-36.5); Mean Corpuscular Volume 96 fL (80-100); Mean Platelet Volume 10.9 fL (9.1-12.4); NEUTROPHILS ABSOLUTE AUTO 5.45 K/mm3 (1.96-9.15); NEUTROPHILS PERCENT AUTO 67 % (41-73); Platelet Count 138 K/mm3 (150-400); RDW Coefficient Variation 16.4 % (11.7-14.2); RDW Standard Deviation 57.8 fL (35.1-46.3); Red Blood Cell Count 3.52 M/mm3 (4.30-5.90); White Blood Cell Count 8.16 K/mm3 (4.00-11.30)
--- NOTE | 2023-08-02 06:36 | NUR ---
PT HAS LABILE MOOD, IRRITABLE AT TIMES BUT COOPERATIVE. REQUIRES REPOSITIONING ASSISTANCE AND INCONTINENCE CARE. NO BM BUT INCONTINENT OF BLADDER. VSS, SHORT RESPONSES TO SIMPLE QUESTIONS. NO ACUTE CHANGES NOTED TO PT CONDITION. FIRE SAFETY REVIEWED.
[2023-08-02 06:56] LABS: Bun/Creatinine Ratio 51.9 (12.0-20.0); Calcium, Blood 8.6 mg/dL (8.5-10.1); Creatinine, Blood 0.54 mg/dL (0.60-1.20); Potassium, Blood 3.7 mmol/L (3.5-5.5)
[2023-08-02 07:41] VITALS: BP 156/88
[2023-08-02 15:30] VITALS: BP 150/90
--- NOTE | 2023-08-02 17:43 | NUR ---
SHIFT SUMMARY PATIENT IS ALERT BUT NOT ORIENTED. PATIENT HAS HAD NO ACUTE EVENTS THIS SHIFT. VITAL SIGNS REVIEWED. PATIENT HAS HAD A SPEECH EVAL DONE TODAY AND DIET MODIFIED PER ORDERS. PATIENT WAS GIVEN FOOD AND SMALL SIPS OF WATER AND CAREFULLY FED PATIENT. PATIENT REQUIRES A FEEDER. PATIENT CAN HAVE AGGITATION BEHAVIOR AT TIMES. PATIENT HAS BEEN INAPPROPRIATE AT TIMES. PATIENT HAS HAD NO COMPLAINTS OF PAIN, NAUSEA, SOB OR VOMITTING. PATIENT IS BEDREST AND IS A LIFT PATIENT. INCONTINENT AND CHECKED FREQUENTLY. BED IN LOCKED AND LOWEST POSITION. CALL LIGHT IN PLACE. WILL MONITOR UNTIL SHIFT CHANGE.
[2023-08-02 17:47] LABS: Bun/Creatinine Ratio 49.8 (12.0-20.0); Calcium, Blood 8.8 mg/dL (8.5-10.1); Creatinine, Blood 0.48 mg/dL (0.60-1.20); Percent Saturation 24.5 % (20.0-50.0); Potassium, Blood 3.7 mmol/L (3.5-5.5)
[2023-08-02 19:24] VITALS: BP 144/86
[2023-08-02 23:54] LABS: Adenovirus Not Detected (NOT DETECT); Bordetella pertussis Not Detected (NOT DETECT); Chlamydophila pneumoniae Not Detected (NOT DETECT); Coronavirus 229E Not Detected (NOT DETECT); Coronavirus HKU1 Not Detected (NOT DETECT); Coronavirus NL63 Not Detected (NOT DETECT); Coronavirus OC43 Not Detected (NOT DETECT); Human Metapneumovirus Not Detected (NOT DETECT); Human Rhinovirus/Enterovirus Not Detected (NOT DETECT); Influenza A/2009-H1 Not Detected (NOT DETECT); Influenza A/H1 Not Detected (NOT DETECT); Influenza A/H3 Not Detected (NOT DETECT); Influenza B Not Detected (NOT DETECT); Mycoplasma pneumoniae Not Detected (NOT DETECT); Parainfluenza Virus 1 Not Detected (NOT DETECT); Parainfluenza Virus 2 Not Detected (NOT DETECT); Parainfluenza Virus 3 Not Detected (NOT DETECT); Parainfluenza Virus 4 Not Detected (NOT DETECT); Respiratory Syncytial Virus Not Detected (NOT DETECT); SARS-Cov-2 (COVID-19), BioFire Not Detected (NOT DETECT)
[2023-08-03 02:51] VITALS: BP 116/45
[2023-08-03 05:55] LABS: Hematocrit 30.9 % (37.0-53.0); Hemoglobin 10.3 g/dL (13.5-17.5); Mean Corpuscular HGB 31.7 pg (26.0-34.0); Mean Corpuscular HGB Conc 33.3 g/dL (31.5-36.5); Mean Corpuscular Volume 95 fL (80-100); Mean Platelet Volume 11.2 fL (9.1-12.4); Platelet Count 129 K/mm3 (150-400); RDW Coefficient Variation 15.8 % (11.7-14.2); RDW Standard Deviation 55.4 fL (35.1-46.3); Red Blood Cell Count 3.25 M/mm3 (4.30-5.90); White Blood Cell Count 6.89 K/mm3 (4.00-11.30)
[2023-08-03 06:31] LABS: Bun/Creatinine Ratio 37.6 (12.0-20.0); Calcium, Blood 8.6 mg/dL (8.5-10.1); Creatinine, Blood 0.45 mg/dL (0.60-1.20); Potassium, Blood 3.4 mmol/L (3.5-5.5)
--- NOTE | 2023-08-03 06:47 | NUR ---
PT IS CONTRACTED IN ALL EXTREMITIES, RETAINS LIMITED USE OF RUE. BONY PROMINENCE ON SACRUM, REQUIRES OFFLOADING AND REPOSITIONING ASSIST. NO WOUNDS NOTED BUT THERE IS BLANCHABLE REDNESS. CONFUSED, IRRITABLE BUT COMPLIANT WITH CARES. MEDS CRUSHED IN APPLESAUCE. LUNGS ARE COARSE. INCONTINENT OF BLADDER, NO BM THIS SHIFT.
[2023-08-03 07:18] VITALS: BP 147/72
[2023-08-03 16:33] VITALS: BP 144/77
--- NOTE | 2023-08-03 18:01 | NUR ---
SHIFT SUMMARY PT TAKING MEDS THIS MORNING AND THEN STARTED STRUGGLING TO SWALLOW SO DEPAKOTE AND MIRALAX UNABLE TO BE GIVEN. CHANGED TO NPO EXCEPT MEDS BY IRON MOLDER HELPER. HELD WATER IN MOUTH FOR SEVERAL MINUTES AND APPEARED TO START COUGHING DESPITE ENCOURAGEMENT TO SWALLOW WATER. HAD BEEN ABLE TO EAT A COUPLE SMALL SLICES OF BANANA BEFORE NOT SWALLOWING ANY MORE. WOULD CHEW FOR LONG PERIODS OF TIME. R ARM EDEMATOUS AND APPEARED IV INFILTRATED. NEW IV TO L HAND. SWELLING TO R ARM APPEARS LESS THAN THIS MORNING. APPEARS COMFORTABLE IN BED. SPOKE WITH AN AT [facility] ABOUT DELAY OF DISCHARGE POTENTIALLY PLANNED FOR TODAY.
[2023-08-03 19:30] VITALS: BP 136/76
[2023-08-04 03:03] VITALS: BP 139/68
--- NOTE | 2023-08-04 05:13 | NUR ---
SUMMARY: PT ORIENTED TO SELF ONLY AND REMAINS DROWSY BUT IS WAKEFUL TO VOICE. HE WAS ABLE TO ANSWER SOME YES/NO AND SPOKE IN SHORT PHRASES TONIGHT. HE WAS SEEMINGLY MORE ALERT THAN DAY SHIFT AND WAS ABLE TO FOLLOW SOME INSTRUCTIONS. PO MEDS TOLERATED CRUSHED IN APPLESAUCE W/ASP PREC'S MAINTAINED BUT HE WAS UNABLE TO USE STRAW FOR TINY SIPS WATER. HE REMAINS NPO X MEDS. OCC WET COUGH PERSISTS AND PT HAS SCATTERED COARSE LS. 1ST OF 2 BAGS D5 INFUSES AT 60 ML/HR PER EMAR. L.ARM AND LEGS ARE CONTRACTED W/HEEL PROTECTORS IN PLACE. BLE'S ARE COOL AND EDEMATOUS W/POOR CAP REFILL. TURN SCHEDULE MAINTAINED FOR SBD PREVENTION. NO ACUTE CHANGES, VSS/AFEBRILE. WCTM AND REPORT TO DAY RN.
[2023-08-04 07:17] VITALS: BP 137/70
[2023-08-04 09:14] LABS: Bun/Creatinine Ratio 20.2 (12.0-20.0); Calcium, Blood 8.2 mg/dL (8.5-10.1); Creatinine, Blood 0.45 mg/dL (0.60-1.20); Potassium, Blood 3.3 mmol/L (3.5-5.5)
[2023-08-04 16:09] VITALS: BP 115/64
--- NOTE | 2023-08-04 17:31 | NUR ---
SHIFT SUMMARY PT AWAKE AND ALERT THIS MORNING. TOOK MEDS WELL WITH NO COUGHING OR S/S OF ASPIRATION. ABLE TO ANSWER AND LOCATION QUESTIONS. ANODE CREW SUPERVISOR FOLLOWED UP WITH PT AND PLACED ON PUREE DIET.
[2023-08-04 20:49] VITALS: BP 130/66
[2023-08-05 02:59] VITALS: BP 142/80
--- NOTE | 2023-08-05 04:10 | NUR ---
SHIFT SUMMARY PATIENT HAD NO ACUTE CHANGES. AXO X 2 WITH HX DEMENTIA. BEDFAST. ABLE TO ANSWER YES/NO QUESTIONS. REFUSED MEDICATIONS. ABLE TO TAKE SMALL SIPS OF WATER. PIV REMAINS INTACT. OCC WET COUGH. LEFT ARM AND LEGS CONTRACTED WITH HEEL PROTECTORS IN PLACE. TURN SCHEDULE. VSS/AFEBRILE. DENIES CHEST PAIN, SOB, AND N/V. ON 2L O2 NC PRN. CALL LIGHT IN REACH. BED IN LOWEST POSITION. WILL CONTINUE TO MONITOR UNTIL DAY SHIFT NURSE ASSUMES CARE.
[2023-08-05 04:34] LABS: Hematocrit 31.1 % (37.0-53.0); Hemoglobin 10.7 g/dL (13.5-17.5); Mean Corpuscular HGB 31.9 pg (26.0-34.0); Mean Corpuscular HGB Conc 34.4 g/dL (31.5-36.5); Mean Corpuscular Volume 93 fL (80-100); Mean Platelet Volume 10.2 fL (9.1-12.4); Platelet Count 176 K/mm3 (150-400); RDW Coefficient Variation 15.3 % (11.7-14.2); RDW Standard Deviation 52.8 fL (35.1-46.3); Red Blood Cell Count 3.35 M/mm3 (4.30-5.90); White Blood Cell Count 5.14 K/mm3 (4.00-11.30)
[2023-08-05 04:48] LABS: Bun/Creatinine Ratio 15.7 (12.0-20.0); Creatinine, Blood 0.45 mg/dL (0.60-1.20); Potassium, Blood 3.6 mmol/L (3.5-5.5)
[2023-08-05 07:09] VITALS: BP 152/83
[2023-08-05] MEDS ORDERED: LEVO750 PO (15:54)
--- NOTE | 2023-08-05 17:52 | NUR ---
SHIFT SUMMARY PT GOING BACK TO [facility] WHEN [facility] ARRIVES TO PICK HIM UP. AN NOTIFIED OF TIME APPROX AND UPDATE. PT SLEEPING ON AND OFF THROUGH THE DAY. REFUSING FOOD.
== END 2023-08-05 18:37 | disposition home or self-care (01) | DRG 640 ==
LOC: ER 07:16 → MEDS 11:02
PROVIDERS: Emergency Medicine; Internal Medicine; ADMIT Family Medicine
DX: E87.0 Hyperosmolality and hypernatremia (principal); G92.8 Other toxic encephalopathy; J96.01 Acute respiratory failure with hypoxia; I69.354 Hemiplegia and hemiparesis following cerebral infarction affecting left non-dominant side; F03.918 Unspecified dementia, unspecified severity, with other behavioral disturbance; I95.9 Hypotension, unspecified; D50.9 Iron deficiency anemia, unspecified; D72.829 Elevated white blood cell count, unspecified; I10 Essential (primary) hypertension; Z51.5 Encounter for palliative care; E86.0 Dehydration; I69.391 Dysphagia following cerebral infarction; R13.10 Dysphagia, unspecified; G47.00 Insomnia, unspecified; G40.909 Epilepsy, unspecified, not intractable, without status epilepticus; Z20.822 Contact with and (suspected) exposure to COVID-19; J43.9 Emphysema, unspecified; K21.9 Gastro-esophageal reflux disease without esophagitis; Z86.19 Personal history of other infectious and parasitic diseases; Z86.16 Personal history of COVID-19; I25.2 Old myocardial infarction; Z79.899 Other long term (current) drug therapy; Z87.81 Personal history of (healed) traumatic fracture; Z86.711 Personal history of pulmonary embolism; Z90.49 Acquired absence of other specified parts of digestive tract; Z87.01 Personal history of pneumonia (recurrent)
CPT/HCPCS: 0202U; 0241U; 36415; 51701; 71045; 80048; 80053; 80164; 81001; 82728; 83540; 83550; 83605; 84145; 85025; 85027; 87040; 87086; 92526; 92610; 93005; 93010; 94760; 96361-59; 96365-59; 99285-25; A9270; J0696; J1650; J7030; J7070; J7120